=== PATIENT | female | born 2000 | race American Indian/Alaskan Native ===

== ENCOUNTER 2024-05-03 18:13 | Emergency (ER) | payer SELFPAY ==
[~2024-05-03] VITALS: Ht 157.5 cm; Wt 63.0 kg
[2024-05-03 19:35] LABS: BILIRUBIN, URINE NEGATIVE (negative); BLOOD/HGB, URINE NEGATIVE (Negative); KETONE, URINE NEGATIVE (Negative); LEUK ESTERASE, URINE NEGATIVE (negative); NITRITE, URINE NEGATIVE (negative)
[2024-05-03 20:58] VITALS: BP 121/71
== END 2024-05-03 21:01 | disposition home or self-care (01) ==
LOC: ED 18:13
PROVIDERS: Internal Medicine
DX: R55 Syncope and collapse (principal)
CPT/HCPCS: 81003; 84703; 99284